=== PATIENT | male | born 1995 | race Caucasian/White ===

== ENCOUNTER 2024-09-18 10:45 | Emergency (ER) | payer BC, SELFPAY ==
[2024-09-18 10:47] VITALS: BP 138/87
[2024-09-18] MEDS: TORADOL 15 MG IV (12:46)
[2024-09-18] MEDS: NSS 1000 IV (12:46)
[2024-09-18 12:56] VITALS: BP 130/82
[2024-09-18 13:12] LABS: Hematocrit 44.4 % (39.0-52.0); Hemoglobin 15.4 g/dL (13.0-18.0); Mean Corp Hgb Conc. 34.7 g/dL (33.0-37.0); Mean Corpuscular Volume 88.1 fL (80.0-94.0); Platelet Count 209 10^3/uL (130-400); Red Cell Dist. Width 12.0 % (11.5-14.5)
[2024-09-18 13:46] LABS: ALT (SGPT) 16 U/L (0-50); AST (SGOT) 14 U/L (17-59); Albumin 4.7 g/dl (3.5-5.0); Alkaline Phosphatase 48 U/L (38-126); Blood Urea Nitrogen 11 mg/dl (9-20); Calcium 9.3 mg/dl (8.4-10.2); Carbon Dioxide 25 mmol/L (22-30); Chloride 106 mmol/L (98-107); Glucose 92 mg/dl (70-99); Magnesium 2.3 mg/dl (1.6-2.3); Potassium 4.3 mmol/L (3.5-5.1); Sodium 139 mmol/L (135-145); Total Protein 7.0 g/dl (6.3-8.2); eGFR > 60.00
--- NOTE | 2024-09-18 14:53 | ED.GENMED ---
History of Present Illness
General
Chief Complaint: Headache
Source: patient
Exam Limitations: none
Time Seen by Provider: 09/18/24 11:50
Nursing documentation reviewed up to this point in time: agreed with
History of Present Illness
History of Present Illness:
Patient presents to ED secondary to 3-day history of headache, associated with dizziness and nausea sensation. Since onset, patient does state that his headache has improved, but is persisting. Patient has had headache in the past, but has never
lasted this long. Patient does report removing dog tick off his body 2 days ago. Denies fever or chills. Denies blurred vision. Denies loss of sensation weakness. Denies difficulty speech. Patient denies confusion. Denies recent change in
medications or diet. Denies recent illness. Denies recent travel. There is no family history of headache.
Past History
Past History
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
Social History
Tobacco: Non-smoker
Living: with family
Review of Systems
Review of Systems
Allergies reviewed?: Yes
All Other Systems: ROS reviewed and negative except as documented in HPI and ROS
Constitutional: Reports no symptoms; Denies fever
Respiratory: Reports no symptoms; Denies cough
Cardiac: Reports no symptoms; Denies chest pain or syncope
ABD/GI: Reports nausea; Denies vomiting
: Reports no symptoms
Musculoskeletal: Reports no symptoms
Skin: Reports no symptoms
Neurological: Reports dizzy and headache
Phy Exam
Physical Exam
Physical Exam:
Physical Exam
General: no apparent distress, not acutely ill. afebrile
Head: nc/at. eomi
Neck: supple. no meningeal signs. no nystagmus.
Heart: s1/s2 regular rate and rhythm
Lungs: no acute respiratory distress. clear bilaterally
Abdomen: normal bowel sounds. not tender.
Neuro: alert and oriented x 3. no focal neurological deficits. normal speech
Skin: no rash
Psychiatric: well kept. interactive and cooperative
Extremities: no edema. no calf tenderness.
Course
Orders/Labs/Results
Orders:
Orders
09/18/24 12:39
CT Head W/o Iv Contrast Urgent
Comment:
Reason For Exam: headche w dizziness
Ketorolac [Toradol] 15 mg IV NOW STA
09/18/24 12:40
0.9% Sodium Chloride 1000 ml [Nss] 1,000 ml IV BOLUS
09/18/24 12:55
Complete Blood Count/No Diff Urgent
Comprehensive Metabolic Panel Urgent
Lyme Progressive Urgent
Comment: ADD ON
Magnesium Urgent
09/18/24 14:30
Add On- LAB Urgent
Tests Added?: lyme progressive
09/18/24 15:01
Add On- LAB Urgent
Tests Added?: depakote level
Abnormal Lab Results
09/18/24
12:55
AST 14 L U/L
()
09/18/24 12:55
09/18/24 12:55
Vital Signs
Initial and Last Documented VS:
Initial Vital Signs
Temp Pulse Resp BP Pulse Ox
98.2 F 80 16 138/87 97
09/18/24 10:47 09/18/24 10:47 09/18/24 10:47 09/18/24 10:47 09/18/24 10:47
Last Documented Vital Signs
Temp Pulse Resp BP Pulse Ox
98.2 F 78 18 130/82 100
09/18/24 10:47 09/18/24 12:56 09/18/24 12:56 09/18/24 12:56 09/18/24 14:54
MDM/Problems Addressed
MDM/Problems Addressed:
Patient with an unremarkable workup in ED, including blood work and CT head.
Lyme titer pending.
Patient otherwise is afebrile, hemodynamically stable, and neurologically intact at time of discharge. Patient will be advised to take Tylenol/Motrin for symptomatic relief, along with continual hydration, as well as PCP follow-up. Advised to
return to ED with worsening symptoms.
*Pulse Oximetry
SaO2: 100
Oxygen Mode of Delivery: Room air
Patient hypoxic: no
*Critical Care Note
Total Time (30-74mins, 75-104mins- exclusive of procedures): Not Applicable
ED Attending Note
-
Portions of this chart may have been created with voice recognition software.� Occasional wrong word or��sound alike� substitutions may have occurred due to the inherent limitations of voice recognition software.
Discharge Plan
Departure
Patient Disposition: Home (Routine Discharge)
Date of Disposition: 09/18/24
Time of Disposition: 15:00
Patient with high blood pressure during this ER visit?: Yes
Condition: Good
Discharge Problem:
Headache
Instructions: Headache, Adult (DC)
Prescriptions:
No Action
sertraline [Zoloft] 100 MG tablet
100 mg PO DAILY
multivitamin [Lur-Qxrarq-Gonrx] 1 EACH tablet
1 ea PO DAILY
divalproex 500 MG tablet,delayed release (DR/EC)
1,500 mg PO HS
divalproex [Depakote] 500 MG tablet,delayed release (DR/EC)
1,000 mg PO BID Qty: 30 0RF
Referrals:
Allen Fowler DO [Family Provider, Family Practice]
Activity Restrictions/Additional Instructions:
As discussed, please follow-up with your primary care physician with any further concerns. In ED, CT head and blood work did not reveal any acute abnormal findings. You will be contacted if Lyme titer comes back positive
Interventions
Interventions:
*Risk Screen - Suicide Last Done: 09/18/24 10:48
*General Assessment Last Done: 09/18/24 12:31
*Neglect/Abuse Screening Last Done: 09/18/24 10:48
*ED- Fall Risk Assessment Last Done: 09/18/24 12:31
*ED COVID-19 Vaccine History Last Done: 09/18/24 12:31
*Nursing Disposition Last Done: 09/18/24 15:15
ED- Neurological Assessment Last Done: 09/18/24 12:30
Discharge Date and Time
Discharge Date/Time: 09/18/24 15:15
Print Language: HUNGARIAN
[2024-09-19 13:41] LABS: Lyme Antibody Screen, EIA Negative (Negative)
== END 2024-09-18 15:15 | disposition home or self-care (01) ==
LOC: EMR 10:45
PROVIDERS: EMERGENCY PHYSICIAN Emergency Medicine; FAMILY PHYSICIAN Family Medicine
DX: R51.9 Headache, unspecified (principal)
CPT/HCPCS: 99284; 96374; 96361; 70450; 80053; 83735; 85027; 86618